=== PATIENT | male | born 2000 ===

== ENCOUNTER 2022-05-29 21:37 | Emergency (ER) | payer SELFPAY ==
[~2022-05-29] VITALS: Ht 175.3 cm; Wt 77.3 kg
[2022-05-29 23:45] VITALS: BP 130/73
[2022-06-01 08:06] LABS: HIV 1-2 SCREEN 4TH GEN W/RFLX Non Reactive (Non Reactive)
== END 2022-05-29 23:46 | disposition home or self-care (01) ==
LOC: EMS 21:41
DX: M25.569 Pain in unspecified knee (principal); Z11.3 Encounter for screening for infections with a predominantly sexual mode of transmission
CPT/HCPCS: 86592; 87389; 87491; 87591; 99283